=== PATIENT | male | born 1975 | race Two or more races ===

== ENCOUNTER 2021-02-13 08:49 | Emergency (ER) | payer SELFPAY ==
[~2021-02-13] VITALS: Ht 185.4 cm; Wt 192.0 kg
--- NOTE | 2021-02-13 09:33 | PHYS DOC ---
Past History Past Medical History: No Pertinent History, Kidney Stones Additional Past Surgical Histo: lithotripsy Alcohol Use: None Adult General Chief Complaint Chief Complaint: SHORTNESS OF BREATH [facility] HPI Patient is a 45-year-old male presenting with fianc for shortness of breath. This is an acute on chronic issue. Reports over past week, he has had worsened episodes of shortness of breath and instances where he has woken up from his sleep gasping for air. States he has been sleeping worse than usual. Reports being unable to sleep longer than 5 hours at night without waking up, feels extremely fatigued after doing so. Has no known medical issues as he does not have health insurance and has no primary care physician. Does not take any medications on a daily basis. No recent fever, sick contacts, recent travel, hemoptysis, chest pain, sputum production, abdominal pain, changes in motor or sensory or neuro function. Admits to cigarette exposure, no alcohol dependence or illicit drug use Review of Systems Review of Systems Fourteen body systems of review of systems have been reviewed. See HPI for pertinent positives and negative responses, other [place] all other systems are negative, non-pertinent or non-contributory Allergies Allergies Allergies Coded Allergies Type Severity Reaction Last Updated Verified No Known Drug Allergies 02/13/21 No Physical Exam Physical Exam Constitutional: Well developed, well nourished, no acute distress, non-toxic appearance. Obese HENT: Normocephalic, atraumatic, bilateral external ears normal, oropharynx moist, no oral exudates, nose normal. Eyes: PERRLA, EOMI, conjunctiva normal, no discharge. Neck: Normal range of motion, no tenderness, supple, no stridor. Cardiovascular: Heart rate regular, sinus rhythm, no murmurs rubs or gallops Lungs & Thorax: Globally diminished lung sounds due to body habitus otherwise bilateral breath sounds clear to auscultation Abdomen: Bowel sounds normal, soft and protuberant, no tenderness, no masses, no pulsatile masses. Nonsurgical abdomen, no peritoneal signs Skin: Warm, dry, no erythema, no rash. Back: No tenderness, no CVA tenderness. Extremities: No tenderness, no cyanosis, no clubbing, ROM intact, no edema. Neurologic: Alert and oriented X 3, grossly normal motor & sensory function, no focal deficits noted. Psychologic: Affect normal, judgement normal, mood normal. Current Patient Data Vital Signs Vital Signs Date Time Temp Pulse Resp B/P (MAP) Pulse Ox O2 Delivery O2 Flow Rate FiO2 02/13/21 09:00 98.0 93 32 192/121 (144) 92 Room Air Lab Results Laboratory Tests Test 02/13/21 09:20 White Blood Count 15.0 x10^3/uL Red Blood Count 3.73 x10^6/uL Hemoglobin 10.5 g/dL Hematocrit 32.1 % Mean Corpuscular Volume 86 fL Mean Corpuscular Hemoglobin 28 pg Mean Corpuscular Hemoglobin Concent 33 g/dL Red Cell Distribution Width 14.9 % Platelet Count 348 x10^3/uL Neutrophils (%) (Auto) 79 % Lymphocytes (%) (Auto) 14 % Monocytes (%) (Auto) 5 % Eosinophils (%) (Auto) 2 % Basophils (%) (Auto) 1 % Neutrophils # (Auto) 11.9 x10^3uL Lymphocytes # (Auto) 2.0 x10^3/uL Monocytes # (Auto) 0.7 x10^3/uL Eosinophils # (Auto) 0.2 x10^3/uL Basophils # (Auto) 0.1 x10^3/uL Sodium Level 143 mmol/L Potassium Level 3.7 mmol/L Chloride Level 106 mmol/L Carbon Dioxide Level 31 mmol/L Anion Gap 6 Blood Urea Nitrogen 18 mg/dL Creatinine 1.5 mg/dL Estimated GFR (Cockcroft-Gault) 50.6 BUN/Creatinine Ratio 12 Glucose Level 102 mg/dL Calcium Level 8.0 mg/dL Total Bilirubin 0.4 mg/dL Aspartate Amino Transf (AST/SGOT) 22 U/L Alanine Aminotransferase (ALT/SGPT) 33 U/L Alkaline Phosphatase 97 U/L Troponin I Quantitative 0.019 ng/mL [id number] Natriuretic Peptide 1395 pg/mL Total Protein 7.0 g/dL Albumin 3.2 g/dL Albumin/Globulin Ratio 0.8 Current Medications Medications (Trade) Dose Ordered Sig/Janae Route PRN Reason Start Time Stop Time Status Last Admin Dose Admin Aspirin (Woo Aspirin) 325 mg 1X ONCE PO 02/13/21 09:45 02/13/21 09:46 DC 02/13/21 09:48 Nitroglycerin (Nitrostat) 0.4 mg PRN Q5MIN PRN SL CHEST PAIN 02/13/21 09:45 02/13/21 11:55 DC 02/13/21 09:49 Nitroglycerin (Nitrostat) 0.4 mg PRN Q5MIN PRN SL CHEST PAIN 02/13/21 09:45 02/13/21 12:34 DC Aspirin (Woo Aspirin) 325 mg 1X ONCE PO 02/13/21 09:45 02/13/21 09:53 DC Iohexol (Omnipaque 350 Mg/ml) 100 ml 1X ONCE IV 02/13/21 10:00 02/13/21 10:01 DC 02/13/21 10:10 Sodium Chloride 1,000 ml @ 1,000 mls/hr 1X ONCE IV 02/13/21 10:30 02/13/21 11:29 DC 02/13/21 10:26 Amlodipine Besylate (Norvasc) 5 mg 1X ONCE PO 02/13/21 11:30 02/13/21 11:55 DC 02/13/21 11:37 Amlodipine Besylate (Norvasc) 5 mg 1X ONCE PO 02/13/21 11:30 02/13/21 11:55 DC EKG EKG EKG ordered and interpreted by myself 0914 hrs. as sinus rhythm at 92 bpm, prolo nged QTC at 508 otherwise unremarkable intervals, no axis deviation, T wave inversions noted in lead aVL, no STEMI Radiology/Procedures Radiology/Procedures Study: CT CHEST WITH CONTRAST - PULMONARY ANGIOGRAM History: Shortness of breath Comparison: None Technique: Helical CT of the chest performed after the administration of 75 mL Omnipaque 350 intravenous contrast and timed for angiographic evaluation of the pulmonary arteries per PE protocol. Coronal and sagittal 3D MIP reformations were obtained. One or more of the following individualized dose reduction techniques were utilized for this examination: 1. Automated exposure control 2. Adjustment of the mA and/or kV according to patient size 3. Use of iterative reconstruction technique. Findings: Exam is limited by noise and motion artifact. Pulmonary Arteries: Contrast bolus is adequate to evaluate the lobar arteries. There is no evidence of acute pulmonary embolism. Evaluation of more distal pulmonary arteries is limited by noise and motion artifact. Min pulmonary artery measures 3.8 cm, enlarged. Heart/Systemic Vasculature: Heart is mildly enlarged. No pericardial effusion. Thoracic aorta is normal in caliber. No evidence of aortic dissection. Mediastinum: There is a right posterior paratracheal lymph node measuring 2.4 x 1.7 cm. There are additional smaller paratracheal AP window lymph nodes, nonspecific. Lungs: There is mild septal thickening in the lung bases and mild scattered groundglass attenuation. Small pleural effusions. Central airways are clear. Neck/Axilla/Body Wall: No axillary lymphadenopathy. Upper Abdomen: Normal. Bones: No acute osseous abnormality. IMPRESSION: 1. No acute pulmonary embolism in the main and lobar pulmonary arteries. Limi sebastian evaluation of segmental and subsegmental pulmonary arteries due to motion artifact and noise. 2. Mild cardiomegaly. Small pleural effusions, and interlobular septal thickening in the lung bases suggesting mild interstitial pulmonary edema. 3. Enlarged main pulmonary artery measuring 3.8 cm. 4. Mildly enlarged right posterior paratracheal lymph node measuring 2.4 x 1.7 cm, nonspecific. Electronically signed by: Ashely Babb MD (02/13/2021 10:40 AM) [id number] Heart Score C/O Chest Pain: No HEART Score for Chest Pain: HEART Score for Chest Pain Response (Comments) Value History Slighlty/Non-Suspicious 0 ECG Nonspecific Repolarizatio 1 Age >45 - < 65 1 Risk Factors 1 or 2 Risk Factors 1 Troponin < Normal Limit 0 Total 3 Risk Factors: Risk Factors: DM, Current or recent (<one month) smoker, HTN, HLP, family history of CAD, obesity. Risk Scores: Risk Factors: DM, Current or recent (<one month) smoker, HTN, HLP, family history of CAD, obesity. Course & Med Decision Making Course & Med Decision Making Airway patent, breathing unlabored, IV access obtained and vitals obtained concerning for marked hypertension without known diagnosis and isolated episodes of hypoxia during conversation/exertion HPI and physical exam concerning for untreated sleep apnea, comprehensive diagnostic work-up obtained absent of any emergent/surgical findings With that said, I discussed concern for untreated sleep apnea and patient who has demonstrated hypoxia with conversation/physical exertion. I discussed elevated blood pressure without known diagnosis of hypertension. Also reviewed all lab/imaging findings with patient and fianc at bedside Patient asymptomatic throughout entirety of ER visit despite findings noted. Because of patient's numerous likely undiagnosed conditions, I recommended patient be admitted for further diagnostic work-up and treatment as indicated. Nonetheless, patient deferred due to lack of health insurance I discussed with patient potential life-threatening complications that could result from deferring immediate hospitalization for further care for which he understood, he was aware of the risks and benefits. He cites not having the financial means to afford an inpatient visit at present Extensive discussion was had with patient regarding outpatient treatment options given concerning blood pressure and asymptomatic patient among other diagnoses. Resources were given with recommendations to follow-up with x2 local clinics that see patients without health insurance I advised patient would benefit from further provocative cardiac testing, sleep study for likely need of a CPAP device etc. Although please were made to be admitted, patient continued to defer. As such, joint decision made to start Norvasc for blood pressure control while in ER setting given hypertensive readings. He has blood pressure cuff at home and it was advised he check his blood pressure regularly for review with PCP in outpatient setting Strict return precautions were discussed with good understanding by patient and fianc at bedside, all questions and concerns addressed prior to your departure Critical Care Time This patient required critical care. Due to the fact that the patient required a significant amount of one on one physician - patient contact time, ordering and review of studies, arranging urgent treatment with development of a management plan, evaluation of patients response to treatment with frequent reassessments, and discussions with other providers this patient required 45 minutes of critical care time. Critical care time was indicated due to the inherent instability and/or potential for instability in this patient. The critical care time that is allocated to this patient is above and beyond any time spent on any other billable procedures performed on this patient. Dragon Disclaimer Dragon Disclaimer This electronic medical record was generated, in whole or in part, using a voice recognition dictation system. Departure Departure: Impression: Primary Impression: Shortness of breath Additional Impressions: JEREMY (obstructive sleep apnea) Prolonged QT interval Elevated blood pressure reading without diagnosis of hypertension Disposition: HOME / SELF CARE / HOMELESS Condition: STABLE Referrals: PCP,NO (PCP) Patient Instructions: Form - Blood Pressure Record Sheet, How to Take Your Blood Pressure, [id number], Sleep Apnea Additional Instructions: As discussed prior to ER departure, your vital signs were concerning for high blood pressure without known diagnosis of high blood pressure/hypertension. Your physical exam was nonconcerning for any emergent or surgical issues. Your comprehensive lab work-up was concerning for kidney and lung involvement likely due to untreated sleep apnea. As disclosed, all of your presenting symptoms are likely a result from untreated sleep apnea at home. I discussed the utility of hospital admission for further inpatient medical management and assisting you with resources; however, you chose to be discharged home with close outpatient follow-up with [facility] for continued outpatient follow-up. Joint decision was made to start a blood pressure medication despite no known history of high blood pressure but given readings in ER and concerning history, you should start taking amlodipine/Norvasc 5 mg daily and keep a dedicated blood pressure log. It is imperative that you contact [facility] today to review ER visit and need for extremely close outpatient follow-up for continued work-up that should include sleep study among other diagnostic testing given your age and numerous risk factors. Any concerning signs or symptoms present prior to outpatient follow-up please do not hesitate to come back for repeat evaluation. It was a pleasure to take care of you and I wish you the best going forward Scripts Amlodipine Besylate (NORVASC) 5 Mg Tablet 1 TAB PO DAILY for HIGH BLOOD PRESSURE, #30 TAB 5 Refills Prov: AMANDA JIMENEZ DO 02/13/21 Problem Qualifiers AMANDA JIMENEZ DO Feb 13, 2021 09:33
[2021-02-13] MEDS ORDERED: NITROGLYCERIN SUBLINGUAL 0.4 MG BOTTLE OF 25. SL PRN ×2 (09:45)
[2021-02-13] MEDS ORDERED: ASPIRIN 325 MG TABLET PO ONE ×2 (09:45)
[2021-02-13 09:51] LABS: BASO # 0.1 x10^3/uL (0.0-0.2); BASO % 1 % (0-3); EOS # 0.2 x10^3/uL (0.0-0.7); EOS % 2 % (0-3); HEMATOCRIT 32.1 % (39.0-53.0); HEMOGLOBIN 10.5 g/dL (13.0-17.5); LYMPH % 14 % (24-48); MEAN CORPUSCULAR HEMOGLOBIN 28 pg (25-35); MEAN CORPUSCULAR HGB CONC 33 g/dL (31-37); MEAN CORPUSCULAR VOLUME 86 fL (79-100); MONO # 0.7 x10^3/uL (0.0-1.1); MONO % 5 % (0-9); NEUT # 11.9 x10^3uL (1.8-7.7); NEUT % 79 % (31-73); PLATELET COUNT 348 x10^3/uL (140-400); RED BLOOD COUNT 3.73 x10^6/uL (4.30-5.70); RED CELL DISTRIBUTION WIDTH 14.9 % (11.5-14.5)
[2021-02-13] MEDS ORDERED: IOHEXOL 350 MG/ML 100 ML VIAL. IV ONE (10:00)
[2021-02-13 10:08] LABS: ALBUMIN 3.2 g/dL (3.4-5.0); ALBUMIN/GLOBULIN RATIO 0.8 (1.0-1.7); CREATININE 1.5 mg/dL (0.7-1.3); GFR 50.6; POTASSIUM 3.7 mmol/L (3.5-5.1); TOTAL BILIRUBIN 0.4 mg/dL (0.2-1.0)
[2021-02-13] MEDS ORDERED: IV NORMAL SALINE 1,000ML 1,000 ML IV ONE (10:30)
--- NOTE | 2021-02-13 10:42 | RAD ---
Study: CT CHEST WITH CONTRAST - PULMONARY ANGIOGRAM History: Shortness of breath Comparison: None Technique: Helical CT of the chest performed after the administration of 75 mL Omnipaque 350 intrave nous contrast and timed for angiographic evaluation of the pulmonary arteries per PE protocol. [place] l and sagittal 3D MIP reformations were obtained. One or more of the following individualized dose reduction techniques were utilized for this examinat ion: 1. Automated exposure control 2. Adjustment of the mA and/or kV according to patient size 3. Use of iterative reconstruction technique. Findings: Exam is limited by noise and motion artifact. Pulmonary Arteries: Contrast bolus is adequate to evaluate the lobar arteries. There is no evidence o f acute pulmonary embolism. Evaluation of more distal pulmonary arteries is limited by noise and jose on artifact. Min pulmonary artery measures 3.8 cm, enlarged. Heart/Systemic Vasculature: Heart is mildly enlarged. No pericardial effusion. Thoracic aorta is norm al in caliber. No evidence of aortic dissection. Mediastinum: There is a right posterior paratracheal lymph node measuring 2.4 x 1.7 cm. There are add itional smaller paratracheal AP window lymph nodes, nonspecific. Lungs: There is mild septal thickening in the lung bases and mild scattered groundglass attenuation. Small pleural effusions. Central airways are clear. Neck/Axilla/Body Wall: No axillary lymphadenopathy. Upper Abdomen: Normal. Bones: No acute osseous abnormality. IMPRESSION: 1. No acute pulmonary embolism in the main and lobar pulmonary arteries. Limited evaluation of segme ntal and subsegmental pulmonary arteries due to motion artifact and noise. 2. Mild cardiomegaly. Small pleural effusions, and interlobular septal thickening in the lung bases s uggesting mild interstitial pulmonary edema. 3. Enlarged main pulmonary artery measuring 3.8 cm. 4. Mildly enlarged right posterior paratracheal lymph node measuring 2.4 x 1.7 cm, nonspecific. Electronically signed by: Ashely Babb MD (02/13/2021 10:40 AM) [id number]
[2021-02-13] MEDS ORDERED: amLODIPine BESYLATE 5 MG TABLET PO ONE ×2 (11:30)
[2021-02-13] MEDS ORDERED: AMLO5TAB4 PO (11:32)
[2021-02-13 12:30] VITALS: BP 182/109
--- NOTE | 2021-02-14 01:54 | EKG ---
[facility] [address] [place] [address] Test Date: 2021-02-13 Test Time: 09:04:49 Pat Name: REYNALDO FUNG Department: Room: Gender: M Jinriksha Driver: HERMINIO : 1975 Requested By: AMANDA JIMENEZ Order Number: [id number] Reading MD: Measurements Intervals [place] Rate: 92 P: 28 NE: 180 QRS: 23 QRSD: 110 T: 82 QT: 406 QTc: 508 Interpretive Statements SINUS RHYTHM T ABNORMALITY IN HIGH LATERAL LEADS PROLONGED QT ABNORMAL ECG RI6.02 No previous ECG available for comparison
== END 2021-02-13 12:30 | disposition home or self-care (01) ==
LOC: ER 08:49
DX: R06.02 Shortness of breath (principal); G47.33 Obstructive sleep apnea (adult) (pediatric); R94.31 Abnormal electrocardiogram [ECG] [EKG]; R03.0 Elevated blood-pressure reading, without diagnosis of hypertension
CPT/HCPCS: 36415; 71275; 80053; 83880; 84484; 85025; 93005; 96360; 99285; J7030; Q9967